=== PATIENT | male | born 1940 | race Caucasian/White ===

== ENCOUNTER 2017-05-13 07:59 | Inpatient (IN) ==
[2017-05-13] MEDS ORDERED: SODIUM CHLORIDE 0.9% 500 ML IV STA (08:29)
[2017-05-13 08:36] LABS: Basophils % 0.2 % (0.0-0.8); Hematocrit 45.7 VOL% (42.0-52.0); Hemoglobin 14.7 GM/DL (14.0-18.0); Immature Granulocytes % 0.5 %; Immature Granulocytes Absolute 0.06 #; Lymphocytes # 0.5 10*3/uL (1.4-4.0); Lymphocytes % 3.7 % (21.2-54.2); Mean Corpuscular HGB Conc 32.2 GM/DL (32-36); Mean Corpuscular Hemoglobin 26 PG (27-34); Mean Corpuscular Volume 79.5 FL (87-102); Mean Platelet Volume 10.4 FL (9.6-12.0); Monocytes # 0.4 10*3/uL (0.11-0.8); Monocytes % 3.2 % (1.7-12.7); Neutrophils # 11.8 10*3/uL (1.4-7.4); Neutrophils % 92.4 % (38.7-73.9); Platelet Count 246 T/CUMM (130-400); Red Blood Count 5.75 MC/CUMM (3.8-5.5); Red Cell Distribution Width 18.1 % (9.3-17.3); White Blood Count 12.8 T/CUMM (4-12)
[2017-05-13 08:42] LABS: INR 1.1; PT Patient Result 11.4 SECS; Partial Thromboplastin Time 27.5 SECS (0-40)
[2017-05-13 08:50] LABS: Alanine Aminotransferase 38 U/L (16-61); Albumin 3.3 G/DL (3.4-5.0); Alkaline Phosphatase 95 U/L (45-117); Aspartate Amino Transferase 25 U/L (0-37); Blood Urea Nitrogen 24 MG/DL (7-18); Calcium 8.5 MG/DL (8.5-10.1); Glucose 141 MG/DL (74-106); Potassium 3.7 MMOL/L (3.5-5.1); Sodium 136 MMOL/L (136-145); Total Protein 6.8 G/DL (6.4-8.3); Troponin I Only 0.029 NG/ML (0.00-0.045)
[2017-05-13 09:32] LABS: Apearance,Urine Slightly Hazy (Clear); Bacteria,Urine Many /HPF (Few); Bilirubin,Urine Negative (Negative); Blood, Urine Small mg/dL (Negative); Glucose,Urine (UA) Negative (Negative); Ketones,Urine 5 mg/dL (Negative); Mucus,Urine Moderate /LPF (Occasional); Nitrite,Urine Positive (Negative); Protein,Urine 30 MG/DL; RBC,Urine 2 /HPF (0-4); Urine Color Yellow (Yellow); Urine Specific Gravity 1.021 (1.001-1.035); Urine Urobilinogen < 2.0 EU/DL (0.2-1.0); WBC,Urine 68 /HPF (0-6)
[2017-05-13 09:34] LABS: Ammonia 39 UMOL/L (11-32)
[2017-05-13 09:38] LABS: Hypochromasia Slight; Lymphocytes 4 % (20-55); Platelet Estimate Adequate; Segmented Neutrophils 91 % (50-85); Total Cells Counted 100
[2017-05-13 09:38] LABS: Barbiturates Screen,Urine Negative (Negative); Benzodiazepines Screen,Urine Negative (Negative); Cannabinoid Screen,Urine Negative (Negative); Opiate Screen,Urine Negative (Negative); Phencyclidine Screen,Urine Negative (Negative)
[2017-05-13] MEDS ORDERED: cefTRIAXone 1,000 MG in SODIUM CHLORIDE 0.9% 100 ML IV STA (09:42)
[2017-05-13] MEDS ORDERED: cefTRIAXone 1,000 MG VIAL ONE (10:16)
[2017-05-13] MEDS ORDERED: ACETAMINOPHEN 325 MG TABLET PO PRN (11:40)
[2017-05-13] MEDS ORDERED: LACTULOSE 20 GM/30 ML UDCUP PO SCH (13:00)
[2017-05-13] MEDS: PANTOPRAZOLE 40 MG TABLET PO SCH (14:22)
[2017-05-13] MEDS: SODIUM CHLORIDE 0.9% 1,000 ML IV SCH ×2 (14:23→23:30)
[2017-05-13] MEDS ORDERED: ONDANSETRON 4 MG/2 ML VIAL IV PRN (18:32)
[2017-05-13] MEDS: CIPROFLOXACIN 500 MG TABLET PO SCH (21:04)
[2017-05-14 04:13] LABS: Basophils % 0.3 % (0.0-0.8); Hematocrit 37.5 VOL% (42.0-52.0); Immature Granulocytes % 0.3 %; Immature Granulocytes Absolute 0.02 #; Lymphocytes % 14.8 % (21.2-54.2); Mean Corpuscular Hemoglobin 26 PG (27-34); Mean Corpuscular Volume 79.8 FL (87-102); Mean Platelet Volume 10.3 FL (9.6-12.0); Monocytes # 0.7 10*3/uL (0.11-0.8); Monocytes % 9.7 % (1.7-12.7); Neutrophils # 5.2 10*3/uL (1.4-7.4); Neutrophils % 74.9 % (38.7-73.9); Platelet Count 180 T/CUMM (130-400); Red Cell Distribution Width 17.2 % (9.3-17.3); White Blood Count 6.9 T/CUMM (4-12)
[2017-05-14 04:52] LABS: Calcium 7.4 MG/DL (8.5-10.1); Osmolality,Calculated 277.5 MOS/KG (273-304); Potassium 3.4 MMOL/L (3.5-5.1)
[2017-05-14 05:50] LABS: Eosinophils 5 % (0-10); Hypochromasia 1+; Lymphocytes 9 % (20-55); Microcytosis 1+; Segmented Neutrophils 80 % (50-85); Total Cells Counted 100
[2017-05-14] MEDS: LEVOTHYROXINE 75 MCG TABLET PO SCH (06:20)
[2017-05-14] MEDS: BISOPROLOL/HCTZ 5-6.25 MG TABLET PO SCH (08:30)
[2017-05-14] MEDS: CIPROFLOXACIN 500 MG TABLET PO SCH (08:30)
[2017-05-14] MEDS: SODIUM CHLORIDE 0.9% 1,000 ML IV SCH ×3 (08:31→21:50)
[2017-05-14] MEDS: ASPIRIN EC 81 MG TABLET PO SCH (08:31)
[2017-05-14] MEDS: LACTULOSE 20 GM/30 ML UDCUP PO SCH (08:31)
[2017-05-14] MEDS: PANTOPRAZOLE 40 MG TABLET PO SCH ×2 (08:31→12:14)
[2017-05-14] MEDS: cefTRIAXone 1,000 MG in SYRINGE 1 EACH IV SCH (12:43)
[2017-05-14] MEDS ORDERED: POTASSIUM CHLORIDE 20 MEQ TABLET PO ONE ×2 (12:54→12:57)
[2017-05-14] MEDS ORDERED: HALOPERIDOL 5 MG/ML AMP IV PRN (16:10)
[2017-05-14] MEDS: ZINC OXIDE PASTE 113 GM TUBE TOP SCH (21:10)
[2017-05-14] MEDS ORDERED: ZIPRASIDONE 20 MG/1 ML VIAL IM PRN (21:12)
[2017-05-15 05:44] LABS: Basophils % 0.3 % (0.0-0.8); Hematocrit 38.6 VOL% (42.0-52.0); Hemoglobin 12.6 GM/DL (14.0-18.0); Immature Granulocytes % 0.3 %; Immature Granulocytes Absolute 0.02 #; Lymphocytes # 1.3 10*3/uL (1.4-4.0); Lymphocytes % 21.3 % (21.2-54.2); Mean Corpuscular HGB Conc 32.6 GM/DL (32-36); Mean Corpuscular Hemoglobin 26 PG (27-34); Mean Corpuscular Volume 78.6 FL (87-102); Mean Platelet Volume 9.8 FL (9.6-12.0); Monocytes # 0.8 10*3/uL (0.11-0.8); Monocytes % 13.3 % (1.7-12.7); Neutrophils # 3.9 10*3/uL (1.4-7.4); Neutrophils % 64.8 % (38.7-73.9); Platelet Count 197 T/CUMM (130-400); Red Blood Count 4.91 MC/CUMM (3.8-5.5); Red Cell Distribution Width 17.9 % (9.3-17.3); White Blood Count 6.1 T/CUMM (4-12)
[2017-05-15] MEDS: LEVOTHYROXINE 75 MCG TABLET PO SCH (06:04)
[2017-05-15 06:12] LABS: Calcium 7.7 MG/DL (8.5-10.1); Osmolality,Calculated 276.4 MOS/KG (273-304); Potassium 3.6 MMOL/L (3.5-5.1)
[2017-05-15 06:14] LABS: Calcium 7.6 MG/DL (8.5-10.1); Magnesium 2.2 MG/DL (1.8-2.4); Osmolality,Calculated 278.3 MOS/KG (273-304); Potassium 3.6 MMOL/L (3.5-5.1)
[2017-05-15] MEDS: BISOPROLOL/HCTZ 5-6.25 MG TABLET PO SCH (09:40)
[2017-05-15] MEDS: PANTOPRAZOLE 40 MG TABLET PO SCH ×2 (09:40→11:54)
[2017-05-15] MEDS: LACTULOSE 20 GM/30 ML UDCUP PO SCH (09:40)
[2017-05-15] MEDS: ASPIRIN EC 81 MG TABLET PO SCH (09:40)
[2017-05-15] MEDS: ZINC OXIDE PASTE 113 GM TUBE TOP SCH ×2 (09:41→20:53)
[2017-05-15] MEDS: cefTRIAXone 1,000 MG in SYRINGE 1 EACH IV SCH (11:52)
[2017-05-16 05:26] LABS: Basophils % 0.3 % (0.0-0.8); Hematocrit 38.8 VOL% (42.0-52.0); Hemoglobin 12.6 GM/DL (14.0-18.0); Immature Granulocytes % 0.2 %; Immature Granulocytes Absolute 0.01 #; Lymphocytes # 1.8 10*3/uL (1.4-4.0); Lymphocytes % 27.5 % (21.2-54.2); Mean Corpuscular HGB Conc 32.5 GM/DL (32-36); Mean Corpuscular Hemoglobin 26 PG (27-34); Mean Corpuscular Volume 78.9 FL (87-102); Mean Platelet Volume 10.1 FL (9.6-12.0); Monocytes # 0.7 10*3/uL (0.11-0.8); Monocytes % 11.2 % (1.7-12.7); Neutrophils % 60.8 % (38.7-73.9); Platelet Count 241 T/CUMM (130-400); Red Blood Count 4.92 MC/CUMM (3.8-5.5); Red Cell Distribution Width 17.5 % (9.3-17.3); White Blood Count 6.5 T/CUMM (4-12)
[2017-05-16 05:49] LABS: Calcium 7.6 MG/DL (8.5-10.1); Osmolality,Calculated 280.1 MOS/KG (273-304); Potassium 3.4 MMOL/L (3.5-5.1)
[2017-05-16] MEDS: SODIUM CHLORIDE 0.9% 1,000 ML IV SCH (07:36)
[2017-05-16] MEDS: ASPIRIN EC 81 MG TABLET PO SCH (08:52)
[2017-05-16] MEDS: PANTOPRAZOLE 40 MG TABLET PO SCH (08:52)
[2017-05-16] MEDS: LEVOTHYROXINE 75 MCG TABLET PO SCH (08:53)
[2017-05-16] MEDS: cefTRIAXone 1,000 MG in SYRINGE 1 EACH IV SCH (08:53)
[2017-05-16] MEDS: BISOPROLOL/HCTZ 5-6.25 MG TABLET PO SCH (08:53)
[2017-05-16] MEDS: LACTULOSE 20 GM/30 ML UDCUP PO SCH (08:53)
[2017-05-16] MEDS: ZINC OXIDE PASTE 113 GM TUBE TOP SCH ×2 (09:26→21:18)
[2017-05-16 16:07] LABS: Hepatitis A Ab IgM Quant 0.04 Index; Hepatitis A Ab IgM Result Negative (Negative); Hepatitis B Core IgM Result Negative (Negative); Hepatitis C Virus Ab Quant 0.06 Index; Hepatitis C Virus Ab Result Negative (Negative)
[2017-05-16 17:16] LABS: Hepatitis B Surface Ag Quant < 0.10 Index; Hepatitis B Surface Ag Result Negative (Negative)
[2017-05-16] MEDS: cephALEXin 500 MG CAPSULE PO SCH (21:17)
[2017-05-17 07:50] VITALS: BP 125/64
[2017-05-17] MEDS: cephALEXin 500 MG CAPSULE PO SCH (09:38)
[2017-05-17] MEDS: BISOPROLOL/HCTZ 5-6.25 MG TABLET PO SCH (09:38)
[2017-05-17] MEDS: ASPIRIN EC 81 MG TABLET PO SCH (09:38)
[2017-05-17] MEDS: LACTULOSE 20 GM/30 ML UDCUP PO SCH (09:39)
[2017-05-17] MEDS: PANTOPRAZOLE 40 MG TABLET PO SCH (09:39)
[2017-05-17] MEDS: LEVOTHYROXINE 75 MCG TABLET PO SCH (09:39)
[2017-05-17] MEDS: ZINC OXIDE PASTE 113 GM TUBE TOP SCH (09:42)
== END 2017-05-17 11:19 | DRG 690 ==
LOC: EDBD → EDUNIT# → N.ED 07:59 → SUATTDRO 09:30 → N.EDINP 09:30 → N.2E 10:56
PROVIDERS: ADMIT Family Medicine; ATTEND Internal Medicine Geriatric Medicine

== ENCOUNTER 2017-05-30 04:41 | Inpatient (IN) ==
[2017-05-30 05:54] LABS: Basophils # 0.1 10*3/uL (0.0-0.2); Basophils % 0.5 % (0.0-0.8); Hematocrit 45.4 VOL% (42.0-52.0); Hemoglobin 14.9 GM/DL (14.0-18.0); Immature Granulocytes % 0.5 %; Immature Granulocytes Absolute 0.05 #; Lymphocytes # 1.2 10*3/uL (1.4-4.0); Mean Corpuscular HGB Conc 32.8 GM/DL (32-36); Mean Corpuscular Hemoglobin 26 PG (27-34); Mean Corpuscular Volume 79.2 FL (87-102); Mean Platelet Volume 10.6 FL (9.6-12.0); Monocytes # 1.2 10*3/uL (0.11-0.8); Monocytes % 10.8 % (1.7-12.7); Neutrophils # 8.5 10*3/uL (1.4-7.4); Neutrophils % 77.2 % (38.7-73.9); Platelet Count 321 T/CUMM (130-400); Red Blood Count 5.73 MC/CUMM (3.8-5.5); Red Cell Distribution Width 19.4 % (9.3-17.3)
[2017-05-30 06:04] LABS: Apearance,Urine CLEAR (Clear); Bilirubin,Urine Negative (Negative); Blood, Urine Negative (Negative); Glucose,Urine (UA) Negative (Negative); Hyaline Casts,Urine 1 /LPF (0-3); Ketones,Urine Negative (Negative); Mucus,Urine Occasional /LPF (Occasional); Nitrite,Urine Negative (Negative); Protein,Urine 30 MG/DL; RBC,Urine 6 /HPF (0-4); Urine Color Amber (Yellow); Urine Specific Gravity 1.023 (1.001-1.035); WBC,Urine 1 /HPF (0-6)
[2017-05-30] MEDS ORDERED: SODIUM CHLORIDE 0.9% 1,000 ML IV STA (06:04)
[2017-05-30 06:14] LABS: Alanine Aminotransferase 68 U/L (16-61); Albumin 3.1 G/DL (3.4-5.0); Alkaline Phosphatase 149 U/L (45-117); Aspartate Amino Transferase 62 U/L (0-37); Blood Urea Nitrogen 14 MG/DL (7-18); Calcium 8.4 MG/DL (8.5-10.1); Glucose 113 MG/DL (74-106); Sodium 136 MMOL/L (136-145); Total Protein 6.6 G/DL (6.4-8.3); Troponin I Only < 0.015 NG/ML (0.00-0.045)
[2017-05-30] MEDS ORDERED: AMPICILLIN/SULBACTAM 3,000 MG in SODIUM CHLORIDE 0.9% 100 ML IV STA (07:19)
[2017-05-30] MEDS ORDERED: AMPICILLIN/SULBACTAM 3,000 MG VIAL ONE (08:08)
[2017-05-30] MEDS ORDERED: SODIUM CHLORIDE 0.9% 100 ML IV ONE (08:08)
[2017-05-30] MEDS ORDERED: HYDROmorphone 2 MG/1 ML VIAL IV PRN (11:11)
[2017-05-30] MEDS ORDERED: LACTULOSE 160 GM/240 ML BOTTLE PO SCH (11:11)
[2017-05-30] MEDS ORDERED: PROMETHAZINE 25 MG/1 ML VIAL IM PRN (11:11)
[2017-05-30] MEDS ORDERED: ONDANSETRON 4 MG/2 ML VIAL IV PRN (11:11)
[2017-05-30] MEDS ORDERED: PANTOPRAZOLE 40 MG TABLET PO SCH (11:11)
[2017-05-30] MEDS: ASPIRIN EC 81 MG TABLET PO SCH (11:56)
[2017-05-30] MEDS: DONEPEZIL 5 MG TABLET PO SCH (11:56)
[2017-05-30] MEDS: PANTOPRAZOLE 40 MG TABLET PO SCH (11:58)
[2017-05-30] MEDS: LACTATED RINGERS 1,000 ML IV SCH (12:19)
[2017-05-30] MEDS: PIPERACILLIN/TAZOBACTAM 3,375 MG in SODIUM CHLORIDE 0.9% 100 ML IV SCH ×2 (12:24→20:58)
[2017-05-30] MEDS: LACTULOSE 20 GM/30 ML UDCUP PO SCH (16:10)
[2017-05-30] MEDS: GABAPENTIN 100 MG CAPSULE PO SCH ×2 (16:17→20:58)
[2017-05-31] MEDS: LACTATED RINGERS 1,000 ML IV SCH ×2 (03:01→19:36)
[2017-05-31] MEDS: PIPERACILLIN/TAZOBACTAM 3,375 MG in SODIUM CHLORIDE 0.9% 100 ML IV SCH ×3 (03:02→19:35)
[2017-05-31] MEDS: ENOXAPARIN 40 MG/0.4 ML SYRINGE SUBCUT SCH (04:28)
[2017-05-31] MEDS ORDERED: DIAZEPAM 5 MG TABLET PO ONE (06:00)
[2017-05-31] MEDS ORDERED: cefOXitin 2,000 MG in SYRINGE 1 EACH IV ONE (06:00)
[2017-05-31] MEDS ORDERED: FAMOTIDINE 20 MG TABLET PO ONE (06:00)
[2017-05-31 06:21] LABS: Hematocrit 38.9 VOL% (42.0-52.0); Hemoglobin 12.7 GM/DL (14.0-18.0); Lymphocytes % 15.6 % (21.2-54.2); Mean Corpuscular HGB Conc 32.6 GM/DL (32-36); Mean Corpuscular Hemoglobin 26 PG (27-34); Mean Corpuscular Volume 79.6 FL (87-102); Mean Platelet Volume 10.1 FL (9.6-12.0); Monocytes % 9.2 % (1.7-12.7); Neutrophils % 74.3 % (38.7-73.9); Platelet Count 256 T/CUMM (130-400); Red Blood Count 4.89 MC/CUMM (3.8-5.5); Red Cell Distribution Width 18.5 % (9.3-17.3); White Blood Count 9.8 T/CUMM (4-12)
[2017-05-31 06:22] LABS: Basophils % 0.4 % (0.0-0.8); Immature Granulocytes % 0.5 %; Immature Granulocytes Absolute 0.05 #; Lymphocytes # 1.5 10*3/uL (1.4-4.0); Monocytes # 0.9 10*3/uL (0.11-0.8); Neutrophils # 7.3 10*3/uL (1.4-7.4)
[2017-05-31 06:26] LABS: INR 1.1; PT Patient Result 11.9 SECS; Partial Thromboplastin Time 31.7 SECS (0-40)
[2017-05-31 06:56] LABS: Albumin 2.5 G/DL (3.4-5.0); Bilirubin,Total 2.4 MG/DL (0.2-1.0); Calcium 7.9 MG/DL (8.5-10.1); Ferritin 108.7 ng/ml (26-388); Potassium 3.8 MMOL/L (3.5-5.1); Total Protein 5.4 G/DL (6.4-8.3)
[2017-05-31] MEDS: LEVOTHYROXINE 75 MCG TABLET PO SCH (07:11)
[2017-05-31] MEDS: ASPIRIN EC 81 MG TABLET PO SCH (08:40)
[2017-05-31] MEDS: PANTOPRAZOLE 40 MG TABLET PO SCH (08:40)
[2017-05-31] MEDS: LACTULOSE 20 GM/30 ML UDCUP PO SCH (08:40)
[2017-05-31] MEDS: DONEPEZIL 5 MG TABLET PO SCH (08:40)
[2017-05-31] MEDS ORDERED: TISSUE ADHESIVE 1 EACH APPLICATOR TOP ONE (08:42)
[2017-05-31] MEDS ORDERED: NEOSTIGMINE 10 MG/10 ML VIAL ONE ×2 (09:00→10:49)
[2017-05-31] MEDS ORDERED: PROPOFOL 200 MG/20 ML VIAL IV ONE (10:47)
[2017-05-31] MEDS ORDERED: MIDAZOLAM 2 MG/2 ML VIAL ONE (10:48)
[2017-05-31] MEDS ORDERED: fentaNYL 100 MCG/2 ML VIAL ONE (10:48)
[2017-05-31] MEDS ORDERED: ONDANSETRON 4 MG/2 ML VIAL ONE (10:48)
[2017-05-31] MEDS ORDERED: KETOROLAC 30 MG/1 ML VIAL ONE (10:48)
[2017-05-31] MEDS ORDERED: SEVOFLURANE 1 UNIT/15 MINUTE INH ONE (10:48)
[2017-05-31] MEDS ORDERED: LACTATED RINGERS 1,000 ML IV ONE (10:49)
[2017-05-31] MEDS ORDERED: ROCURONIUM 100 MG/10 ML VIAL IV ONE (10:49)
[2017-05-31] MEDS ORDERED: GLYCOPYRROLATE 0.4 MG/2 ML VIAL ONE (10:49)
[2017-05-31] MEDS ORDERED: ACETAMINOPHEN 1,000 MG/100 ML VIAL IV ONE (10:49)
[2017-05-31] MEDS: GABAPENTIN 100 MG CAPSULE PO SCH ×2 (17:39→21:58)
[2017-06-01] MEDS: ACETAMINOPHEN 325 MG TABLET PO PRN (00:18)
[2017-06-01] MEDS: PIPERACILLIN/TAZOBACTAM 3,375 MG in SODIUM CHLORIDE 0.9% 100 ML IV SCH (04:44)
[2017-06-01] MEDS: LACTATED RINGERS 1,000 ML IV SCH ×4 (04:44→21:45)
[2017-06-01] MEDS: ENOXAPARIN 40 MG/0.4 ML SYRINGE SUBCUT SCH (04:44)
[2017-06-01 06:06] LABS: Basophils % 0.4 % (0.0-0.8); Hematocrit 35.9 VOL% (42.0-52.0); Hemoglobin 11.7 GM/DL (14.0-18.0); Immature Granulocytes % 0.7 %; Immature Granulocytes Absolute 0.07 #; Lymphocytes # 1.5 10*3/uL (1.4-4.0); Lymphocytes % 14.6 % (21.2-54.2); Mean Corpuscular HGB Conc 32.6 GM/DL (32-36); Mean Corpuscular Hemoglobin 26 PG (27-34); Mean Platelet Volume 10.7 FL (9.6-12.0); Monocytes # 0.8 10*3/uL (0.11-0.8); Monocytes % 8.1 % (1.7-12.7); Neutrophils # 7.7 10*3/uL (1.4-7.4); Neutrophils % 76.2 % (38.7-73.9); Platelet Count 238 T/CUMM (130-400); Red Blood Count 4.43 MC/CUMM (3.8-5.5); Red Cell Distribution Width 18.5 % (9.3-17.3); White Blood Count 10.1 T/CUMM (4-12)
[2017-06-01 06:33] LABS: Band Neutrophils 2 % (0-10); Eosinophils 1 % (0-10); Lymphocytes 11 % (20-55); Microcytosis 1+; Platelet Estimate Normal; Segmented Neutrophils 83 % (50-85); Total Cells Counted 100
[2017-06-01 07:07] LABS: Albumin 2.1 G/DL (3.4-5.0); Bilirubin,Total 1.4 MG/DL (0.2-1.0); Calcium 7.4 MG/DL (8.5-10.1); Osmolality,Calculated 274.7 MOS/KG (273-304); Potassium 3.5 MMOL/L (3.5-5.1)
[2017-06-01] MEDS: LEVOTHYROXINE 75 MCG TABLET PO SCH (07:13)
[2017-06-01] MEDS: DONEPEZIL 5 MG TABLET PO SCH (08:25)
[2017-06-01] MEDS: LACTULOSE 20 GM/30 ML UDCUP PO SCH (08:25)
[2017-06-01] MEDS: PANTOPRAZOLE 40 MG TABLET PO SCH (08:25)
[2017-06-01] MEDS: ASPIRIN EC 81 MG TABLET PO SCH (08:26)
[2017-06-01] MEDS: AMOXICILLIN/CLAV 875 MG TABLET PO SCH ×2 (09:46→21:45)
[2017-06-01] MEDS: GABAPENTIN 100 MG CAPSULE PO SCH ×2 (17:21→21:43)
[2017-06-02] MEDS: ACETAMINOPHEN 325 MG TABLET PO PRN (01:13)
[2017-06-02] MEDS: LEVOTHYROXINE 75 MCG TABLET PO SCH (06:02)
[2017-06-02] MEDS: ENOXAPARIN 40 MG/0.4 ML SYRINGE SUBCUT SCH (06:02)
[2017-06-02] MEDS: LACTATED RINGERS 1,000 ML IV SCH (06:03)
[2017-06-02 06:15] LABS: Basophils % 0.3 % (0.0-0.8); Hematocrit 35.1 VOL% (42.0-52.0); Hemoglobin 11.3 GM/DL (14.0-18.0); Immature Granulocytes % 0.4 %; Immature Granulocytes Absolute 0.03 #; Lymphocytes # 1.3 10*3/uL (1.4-4.0); Lymphocytes % 19.3 % (21.2-54.2); Mean Corpuscular HGB Conc 32.2 GM/DL (32-36); Mean Corpuscular Hemoglobin 26 PG (27-34); Mean Corpuscular Volume 80.7 FL (87-102); Mean Platelet Volume 10.3 FL (9.6-12.0); Monocytes # 0.6 10*3/uL (0.11-0.8); Monocytes % 9.2 % (1.7-12.7); Neutrophils # 4.8 10*3/uL (1.4-7.4); Neutrophils % 70.8 % (38.7-73.9); Platelet Count 212 T/CUMM (130-400); Red Blood Count 4.35 MC/CUMM (3.8-5.5); Red Cell Distribution Width 18.3 % (9.3-17.3); White Blood Count 6.8 T/CUMM (4-12)
[2017-06-02 06:36] LABS: Albumin 1.9 G/DL (3.4-5.0); Bilirubin,Total 1.4 MG/DL (0.2-1.0); Calcium 7.6 MG/DL (8.5-10.1); Osmolality,Calculated 277.3 MOS/KG (273-304); Potassium 3.4 MMOL/L (3.5-5.1); Total Protein 4.8 G/DL (6.4-8.3)
[2017-06-02] MEDS: DONEPEZIL 5 MG TABLET PO SCH (09:10)
[2017-06-02] MEDS: ASPIRIN EC 81 MG TABLET PO SCH (09:11)
[2017-06-02] MEDS: PANTOPRAZOLE 40 MG TABLET PO SCH (09:11)
[2017-06-02] MEDS: AMOXICILLIN/CLAV 875 MG TABLET PO SCH ×2 (09:11→21:03)
[2017-06-02] MEDS: LACTULOSE 20 GM/30 ML UDCUP PO SCH (09:12)
[2017-06-02] MEDS: GABAPENTIN 100 MG CAPSULE PO SCH ×2 (16:23→21:03)
[2017-06-03] MEDS: ENOXAPARIN 40 MG/0.4 ML SYRINGE SUBCUT SCH (05:45)
[2017-06-03 06:09] LABS: Basophils % 0.3 % (0.0-0.8); Hematocrit 35.1 VOL% (42.0-52.0); Hemoglobin 11.6 GM/DL (14.0-18.0); Immature Granulocytes % 0.5 %; Immature Granulocytes Absolute 0.03 #; Lymphocytes # 1.1 10*3/uL (1.4-4.0); Lymphocytes % 16.6 % (21.2-54.2); Mean Corpuscular Hemoglobin 26 PG (27-34); Mean Corpuscular Volume 79.1 FL (87-102); Mean Platelet Volume 9.8 FL (9.6-12.0); Monocytes # 0.7 10*3/uL (0.11-0.8); Monocytes % 11.2 % (1.7-12.7); Neutrophils # 4.7 10*3/uL (1.4-7.4); Neutrophils % 71.4 % (38.7-73.9); Platelet Count 234 T/CUMM (130-400); Red Blood Count 4.44 MC/CUMM (3.8-5.5); Red Cell Distribution Width 18.4 % (9.3-17.3); White Blood Count 6.6 T/CUMM (4-12)
[2017-06-03] MEDS: LEVOTHYROXINE 75 MCG TABLET PO SCH (06:10)
[2017-06-03 06:44] LABS: Albumin 1.9 G/DL (3.4-5.0); Bilirubin,Total 1.9 MG/DL (0.2-1.0); Calcium 7.3 MG/DL (8.5-10.1); Osmolality,Calculated 272.5 MOS/KG (273-304); Potassium 3.5 MMOL/L (3.5-5.1); Total Protein 4.7 G/DL (6.4-8.3)
[2017-06-03] MEDS: AMOXICILLIN/CLAV 875 MG TABLET PO SCH ×2 (10:39→20:50)
[2017-06-03] MEDS: LACTULOSE 20 GM/30 ML UDCUP PO SCH (10:39)
[2017-06-03] MEDS: ASPIRIN EC 81 MG TABLET PO SCH (10:39)
[2017-06-03] MEDS: PANTOPRAZOLE 40 MG TABLET PO SCH (10:39)
[2017-06-03] MEDS: DONEPEZIL 5 MG TABLET PO SCH (10:39)
[2017-06-03] MEDS: GABAPENTIN 100 MG CAPSULE PO SCH ×2 (16:55→20:50)
[2017-06-04 05:15] LABS: Albumin 2.1 G/DL (3.4-5.0); Bilirubin,Total 0.9 MG/DL (0.2-1.0); Calcium 7.7 MG/DL (8.5-10.1); Osmolality,Calculated 272.5 MOS/KG (273-304); Potassium 3.5 MMOL/L (3.5-5.1); Total Protein 5.5 G/DL (6.4-8.3)
[2017-06-04] MEDS: ENOXAPARIN 40 MG/0.4 ML SYRINGE SUBCUT SCH (05:25)
[2017-06-04] MEDS: LEVOTHYROXINE 75 MCG TABLET PO SCH (06:34)
[2017-06-04 07:58] VITALS: BP 143/72
[2017-06-04] MEDS: AMOXICILLIN/CLAV 875 MG TABLET PO SCH (09:05)
[2017-06-04] MEDS: ASPIRIN EC 81 MG TABLET PO SCH (09:06)
[2017-06-04] MEDS: PANTOPRAZOLE 40 MG TABLET PO SCH (09:06)
[2017-06-04] MEDS: DONEPEZIL 5 MG TABLET PO SCH (09:06)
[2017-06-04] MEDS: LACTULOSE 20 GM/30 ML UDCUP PO SCH (09:06)
== END 2017-06-04 11:30 | disposition home health service (06) | DRG 417 ==
LOC: EDUNIT# 04:41 → EDBD 04:41 → N.ED 04:41 → N.EDINP 07:52 → N.3E 11:02
PROVIDERS: ADMIT Surgery; ATTEND Surgery
PROC: LAPCHOL (2017-05-31 10:50)